=== PATIENT | female | born 1960 | race Caucasian/White ===

== ENCOUNTER 2017-10-08 12:00 | Outpatient (CLI) | payer BC | END 2017-10-08 12:01 | disposition home or self-care (01) | LOC: BICMAMMO 12:00 | PROVIDERS: ATTEND Obstetrics & Gynecology | DX: Z12.31 Encounter for screening mammogram for malignant neoplasm of breast (principal) | CPT/HCPCS: 77063 ==

== ENCOUNTER 2018-12-03 14:14 | Outpatient (CLI) | payer BC | END 2018-12-03 14:15 | disposition home or self-care (01) | LOC: BICMAMMO 14:14 | PROVIDERS: ATTEND Obstetrics & Gynecology | DX: Z12.31 Encounter for screening mammogram for malignant neoplasm of breast (principal); Z85.00 Personal history of malignant neoplasm of unspecified digestive organ | CPT/HCPCS: 77063; 77067 ==

== ENCOUNTER 2025-06-12 00:57 | Observation (INO) | payer BC ==
[2025-06-12 02:05] VITALS: BMI 24.9
[2025-06-12] MEDS ORDERED: Ondansetron PF 4 MG/2 ML Vial IVP PRN (02:58)
[2025-06-12] MEDS ORDERED: Acetaminophen 325 MG TAB PO PRN (02:58)
[2025-06-12 04:45] LABS: #Basophils 0.10 10x3/uL (0.0-0.2); #Eosinophils 0.16 10x3/uL (0.0-0.7); #Monocytes 1.04 10x3/uL (0.11-0.59); #Neutrophils 5.19 10x3/uL (1.40-6.50); %Basophils 1.2 % (0.0-1.0); %Eosinophils 1.8 % (0.0-10.0); %Lymphocytes 25.0 % (21.0-51.0); %Monocytes 12.0 % (0.0-10.0); %Neutrophils 59.7 % (42.0-75.0); Hematocrit 42.7 % (36.0-47.0); Hemoglobin 13.9 g/dL (12.0-16.0); Mean Corpuscular Hemoglobin 29.3 pg (27.0-31.0); Mean Corpuscular Volume 90.1 fL (78.0-98.0); Platelet Count 172 10x3/uL (130-400); Red Blood Cell (RBC) Count 4.74 mill/uL (4.20-5.40); White Blood Cell (WBC) Count 8.69 10x3/uL (4.8-10.8)
[2025-06-12 05:00] LABS: ALT (SGPT) 20 U/L (Less than 34); AST (SGOT) 42 U/L (11-34); Albumin 3.6 g/dL (3.1-4.5); Alkaline Phosphatase 54 U/L (40-110); Anion Gap 12 mmol/L (10-20); BUN (Urea Nitrogen) 15 mg/dL (9.8-20.1); Bilirubin, Total 1.2 mg/dL (0.3-1.2); Calc. Creatinine Clearance 77 mL/min (70-130); Calcium 8.4 mg/dL (7.8-10.44); Carbon Dioxide 23 mmol/L (23-31); Chloride 110 mmol/L (98-107); Globulin 2.7 g/dL (2.4-3.5); Glucose 100 mg/dL (80-115); Potassium 5.6 mmol/L (3.5-5.1); Sodium 139 mmol/L (136-145)
[2025-06-12] MEDS ORDERED: Famotidine 20 MG TAB PO SCH (09:00)
[2025-06-12 16:43] LABS: Potassium 4.0 mmol/L (3.5-5.1)
[2025-06-13 06:38] LABS: #Basophils 0.06 10x3/uL (0.0-0.2); #Eosinophils 0.31 10x3/uL (0.0-0.7); #Monocytes 0.67 10x3/uL (0.11-0.59); #Neutrophils 3.41 10x3/uL (1.40-6.50); %Basophils 1.0 % (0.0-1.0); %Eosinophils 5.0 % (0.0-10.0); %Lymphocytes 28.3 % (21.0-51.0); %Monocytes 10.8 % (0.0-10.0); %Neutrophils 54.7 % (42.0-75.0); Hematocrit 44.5 % (36.0-47.0); Hemoglobin 14.8 g/dL (12.0-16.0); Mean Corpuscular Hemoglobin 29.7 pg (27.0-31.0); Mean Corpuscular Volume 89.4 fL (78.0-98.0); Platelet Count 174 10x3/uL (130-400); Red Blood Cell (RBC) Count 4.98 mill/uL (4.20-5.40); White Blood Cell (WBC) Count 6.22 10x3/uL (4.8-10.8)
[2025-06-13 06:53] LABS: ALT (SGPT) 20 U/L (Less than 34); AST (SGOT) 35 U/L (11-34); Albumin 3.6 g/dL (3.1-4.5); Alkaline Phosphatase 54 U/L (40-110); Anion Gap 12 mmol/L (10-20); BUN (Urea Nitrogen) 11 mg/dL (9.8-20.1); Bilirubin, Total 1.8 mg/dL (0.3-1.2); Calc. Creatinine Clearance 80 mL/min (70-130); Calcium 8.5 mg/dL (7.8-10.44); Carbon Dioxide 25 mmol/L (23-31); Chloride 109 mmol/L (98-107); Globulin 2.9 g/dL (2.4-3.5); Glucose 84 mg/dL (80-115); Potassium 4.5 mmol/L (3.5-5.1); Sodium 141 mmol/L (136-145)
[2025-06-13] MEDS ORDERED: PROPOFOL 40 ML ONE (08:23)
[2025-06-13] MEDS ORDERED: Lidocaine 1% PF 5 ML VIAL ONE (08:36)
[2025-06-13] MEDS: Pantoprazole 40 MG VIAL IVP SCH (09:22)
[2025-06-13 11:38] VITALS: BP 132/84; TEMP 97.9
== END 2025-06-13 11:36 | disposition home or self-care (01) ==
LOC: MSONC 01:35
PROVIDERS: ADMIT Internal Medicine; ATTEND Family Medicine
PROC: 0DJ08ZZ Inspection of Upper Intestinal Tract, Via Natural or Artificial Opening Endoscopic (ICD-10-PCS; principal; 2025-06-13)
DX: K86.89 Other specified diseases of pancreas (principal); K83.8 Other specified diseases of biliary tract; R79.89 Other specified abnormal findings of blood chemistry; I10 Essential (primary) hypertension; E11.9 Type 2 diabetes mellitus without complications; E78.5 Hyperlipidemia, unspecified; E03.9 Hypothyroidism, unspecified; Z79.890 Hormone replacement therapy; Z79.899 Other long term (current) drug therapy
CPT/HCPCS: 36415; 74181; 76376; 80053; 85025; G0378; J2704

== ENCOUNTER 2025-10-17 07:41 | Outpatient (CLI) | payer BC ==
[2025-10-17 08:18] LABS: Estimated GFR - POC 72.0
== END 2025-10-17 07:42 | disposition home or self-care (01) ==
LOC: SCSMRI 07:41
PROVIDERS: ATTEND Internal Medicine Gastroenterology
DX: Z12.11 Encounter for screening for malignant neoplasm of colon (principal); C49.A2 Gastrointestinal stromal tumor of stomach; K83.8 Other specified diseases of biliary tract; K86.89 Other specified diseases of pancreas; K76.89 Other specified diseases of liver
CPT/HCPCS: 36415; 74183; 76376; 82565; S8037